=== PATIENT | male | born 1995 ===

== ENCOUNTER 2017-12-04 10:19 | Emergency (ER) | payer SELFPAY ==
[~2017-12-04] VITALS: Ht 188 cm; Wt 72.6 kg
[2017-12-04] MEDS ORDERED: ALPR2TAB7 PO (10:27)
--- NOTE | 2017-12-04 10:50 | NUR ---
Patient discharged to home in stable conditon in [employer] custody. Written and verbal after care instructions given. Patient verbalized understanding of instructions.
== END 2017-12-04 10:52 ==
LOC: ER 10:22
DX: F19.10 Other psychoactive substance abuse, uncomplicated (principal); Z79.899 Other long term (current) drug therapy
CPT/HCPCS: A4663